=== PATIENT | female | born 1985 | race African-American/Black ===

== ENCOUNTER 2016-08-30 18:45 | Emergency (ER) | payer SELFPAY ==
[~2016-08-30] VITALS: Ht 170.2 cm; Wt 71.7 kg
[2016-08-30 18:53] VITALS: BP 126/81
== END 2016-08-30 19:52 | disposition home or self-care (01) ==
LOC: ER 18:47
DX: R25.1 Tremor, unspecified (principal)
CPT/HCPCS: 99281; A4606; Z7610; Z7502